=== PATIENT | male | born 1945 | race Caucasian/White ===

== ENCOUNTER 2021-02-22 02:45 | Observation (INO) | payer MEDICARE ==
[~2021-02-22] VITALS: Ht 193 cm; Wt 107.7 kg
[2021-02-22 02:44] VITALS: BP 182/104
[~2021-02-22 02:45] MED LIST: EZFE 200200 MG PO; FOLIC ACID1 MG PO; MINOCIN100 MG PO; NORVASC5 MG PO; VITAMIN B-121000 MC3 PO
[2021-02-22] MEDS ORDERED: LISINOPRIL10 MG PO (02:47)
[2021-02-22] MEDS ORDERED: LIPITOR10 MG PO (02:47)
[2021-02-22] MEDS ORDERED: GLUCOPHAGE500 MG PO (02:47)
--- NOTE | 2021-02-22 02:54 | NUR ---
ARRIVED VIA EMS A OX3. NO DISTRESS NOTE. 18G IV TO L WRIST
[2021-02-22 03:01] VITALS: BP 155/91
--- NOTE | 2021-02-22 04:15 | NUR ---
PT FROM ER VIA W/C, RESP EVEN AND UNLABORED, NO DISTRESS NOTED, CL IN REACH, SR UP X 2.
--- NOTE | 2021-02-22 04:40 | NUR ---
PT BLOOD SUGAR 128 AT THIS TIME.
[2021-02-22 04:57] VITALS: BP 157/86; BMI 28.9
[2021-02-22 07:00] LABS: BASOPHILS 0.8 % (0-2); EOSINOPHILS 4.2 % (0-7); HEMATOCRIT 39.6 % (42.0-54.0); HEMOGLOBIN 13.3 g/dL (13.5-17.5); LYMPHOCYTES 30.6 % (15-50); MCH 28.5 pg (26.0-34.0); MCHC 33.6 g/dL (31.0-37.0); MCV 84.8 fL (80.0-100.0); MEAN PLATELET VOLUME 8.5 fL (7.4-10.4); MONOCYTES 11.7 % (2-11); NEUTROPHILS 52.7 % (40-80); PLATELET COUNT 206 10x3/uL (130-400); RBC 4.67 10x6/uL (4.20-6.10); RDW 13.9 % (11.5-14.5); WBC 5.6 10x3/uL (4.8-10.8)
--- NOTE | 2021-02-22 07:10 | NUR ---
Lying in bed, awake/alert/oriented, T/R self ad hoawrd, cont of B/B with BRPs per self ad howard, denies pain/other discomfort at this time, call light/phone/water within reach, no s/s of acute distress observed.
[2021-02-22 07:13] LABS: ANION GAP 11.2 mmol/L (8-16); CALCIUM 8.6 mg/dL (8.5-10.1); CARBON DIOXIDE 29.3 mmol/L (21.0-32.0); CREATININE - SERUM 1.2 mg/dL (0.6-1.3); POTASSIUM - SERUM 3.5 mmol/L (3.5-5.1)
[2021-02-22 08:06] VITALS: BP 121/70
[2021-02-22 09:22] VITALS: Ht 193 cm; Wt 107.7 kg
[2021-02-22 11:25] VITALS: BP 145/90
[2021-02-22 13:28] LABS: HEMATOCRIT 39.2 % (42.0-54.0); HEMOGLOBIN 13.2 g/dL (13.5-17.5)
--- NOTE | 2021-02-22 13:30 | NUR ---
Pt and spouse want to speak with APPAREL FASHION DESIGNER or physician about what the plan is.
--- NOTE | 2021-02-22 13:57 | NUR ---
Paged TAIWO Mcgraw.
--- NOTE | 2021-02-22 14:00 | NUR ---
Updated PRINTING GRAY CLOTH TENDER Mariluz with pt concerns/wishes, waiting for orders.
--- NOTE | 2021-02-22 16:00 | NUR ---
Provided discharge instructions/education to which pt/spouse expressed understanding, discontinued IV access.
--- NOTE | 2021-02-22 16:18 | NUR ---
DC'd home to self care in stable condition via w/c accompanied by hospital staff and family member, no s/s of acute distress observed.
== END 2021-02-22 16:18 | disposition home or self-care (01) ==
LOC: D.ER 02:45 → D.M2 03:58 → OBSVTIME 03:58 → D.M2 16:18
PROVIDERS: Emergency Medicine; Family Medicine; ADMIT Family Medicine; ATTEND Family Medicine
DX: K92.1 Melena (principal); E11.65 Type 2 diabetes mellitus with hyperglycemia; I10 Essential (primary) hypertension; Z79.84 Long term (current) use of oral hypoglycemic drugs; E78.5 Hyperlipidemia, unspecified

== ENCOUNTER 2021-02-24 03:17 | Observation (INO) | payer MEDICARE, OTHER ==
[~2021-02-24] VITALS: Ht 193 cm; Wt 108.0 kg
[~2021-02-24 03:17] MED LIST changes: +GLUCOPHAGE500 MG PO; +LIPITOR10 MG PO; +LISINOPRIL10 MG PO
[2021-02-24 03:49] LABS: BASOPHILS 0.7 % (0-2); EOSINOPHILS 3.7 % (0-7); HEMATOCRIT 35.8 % (42.0-54.0); MCH 28.7 pg (26.0-34.0); MCHC 33.5 g/dL (31.0-37.0); MCV 85.5 fL (80.0-100.0); MEAN PLATELET VOLUME 7.9 fL (7.4-10.4); MONOCYTES 8.6 % (2-11); PLATELET COUNT 205 10x3/uL (130-400); RBC 4.19 10x6/uL (4.20-6.10); RDW 13.7 % (11.5-14.5); WBC 6.7 10x3/uL (4.8-10.8)
[2021-02-24 03:56] LABS: INR 1.25 (0.85-1.17); PROTIME 14.5 SECONDS (11.6-15.0)
[2021-02-24 03:57] LABS: ANION GAP 10.8 mmol/L (8-16); CARBON DIOXIDE 30.3 mmol/L (21.0-32.0); CREATININE - SERUM 1.3 mg/dL (0.6-1.3)
--- NOTE | 2021-02-24 04:02 | NUR ---
FAMILY MEMBER STATES PT HAS SOILED HIMSELF AND REQUEST WE CLEAN HIM. NOTED LARGE AMOUNT OF LIQUID DARK RED FECES IN PT'S SHORTS AND SPILLED OUT ONTO BED/SHEETS. DR. VICTORIA NOTIFIED.
[2021-02-24 04:03] LABS: ALBUMIN 3.1 g/dL (3.4-5.0); BILIRUBIN - TOTAL 0.57 mg/dL (0.2-1.3); POTASSIUM - SERUM 4.1 mmol/L (3.5-5.1); PROTEIN - SERUM 5.9 g/dL (6.4-8.2)
--- NOTE | 2021-02-24 07:08 | NUR ---
RECEIVED BEDSIDE REPORT FROM CECI HUGGINS
[2021-02-24 07:18] VITALS: BP 124/82
[2021-02-24 09:54] LABS: BASOPHILS 0.5 % (0-2); EOSINOPHILS 3.5 % (0-7); HEMATOCRIT 34.5 % (42.0-54.0); HEMOGLOBIN 11.7 g/dL (13.5-17.5); LYMPHOCYTES 23.3 % (15-50); MCHC 33.9 g/dL (31.0-37.0); MCV 85.6 fL (80.0-100.0); MEAN PLATELET VOLUME 7.8 fL (7.4-10.4); NEUTROPHILS 63.7 % (40-80); PLATELET COUNT 215 10x3/uL (130-400); RBC 4.03 10x6/uL (4.20-6.10); RDW 13.6 % (11.5-14.5); WBC 5.7 10x3/uL (4.8-10.8)
[2021-02-24 11:37] VITALS: BP 142/88
--- NOTE | 2021-02-24 12:10 | NUR ---
RECEIVED PATIENT TO ROOM 2105 VIA STRETCHER. PATIENT IS AAOX4, UP AD JULES. NO S/S OF DISTRESS OBSERVED, RR EVEN AND UNLABORED ON ROOM AIR. PIV TO LT FA, INFUSING PROTONIX AND NS. PATIENT DENIES NEEDS AT THIS TIME. CL IN REACH, BED LOCKED AND LOWERED. WILL CPOC.
[2021-02-24 12:28] VITALS: BP 142/82
[2021-02-24 15:00] VITALS: BP 129/77
[2021-02-24 19:45] VITALS: BP 150/85
--- NOTE | 2021-02-24 21:03 | NUR ---
RADIOLOGY/JANI SPOKE WITH DR HANKINS AND GOT HIS PERMISSION TO DO THE GI BLEED SCAN TONIGHT INSTEAD OF IN THE MORNING.
[2021-02-25 00:27] VITALS: BP 144/84
--- NOTE | 2021-02-25 01:20 | NUR ---
UP TO BATHROOM TO HAVE BM. BACK TO BED. DENIES PAIN. IVF INFUSING. IV PROTONIX DRIP INFUSING.
[2021-02-25 04:16] VITALS: BP 145/87
--- NOTE | 2021-02-25 06:33 | NUR ---
PT HAS RESTED WELL. UP TO BATHROOM INDEPENDENT. GI BLEED TIME WAS PERFORMED LAST NIGHT , SO PT NO LONGER NEEDS TO BE NPO THIS AM. BED LOW AND LOCKED. CALL LIGHT IN REACH. REPORT TO ONCOMING NURSE.
[2021-02-25 06:56] LABS: BASOPHILS 0.4 % (0-2); EOSINOPHILS 4.1 % (0-7); HEMATOCRIT 31.4 % (42.0-54.0); HEMOGLOBIN 10.9 g/dL (13.5-17.5); LYMPHOCYTES 25.2 % (15-50); MCH 29.4 pg (26.0-34.0); MCHC 34.7 g/dL (31.0-37.0); MCV 84.5 fL (80.0-100.0); MEAN PLATELET VOLUME 8.5 fL (7.4-10.4); MONOCYTES 8.6 % (2-11); NEUTROPHILS 61.7 % (40-80); PLATELET COUNT 190 10x3/uL (130-400); RBC 3.71 10x6/uL (4.20-6.10); RDW 13.4 % (11.5-14.5)
[2021-02-25 07:37] LABS: CARBON DIOXIDE 25.8 mmol/L (21.0-32.0); CREATININE - SERUM 1.1 mg/dL (0.6-1.3); POTASSIUM - SERUM 3.8 mmol/L (3.5-5.1)
[2021-02-25 08:02] VITALS: BP 134/72
--- NOTE | 2021-02-25 10:07 | NUR ---
PATIENT AAOX4 RESP EVEN AND NON LABORED, NO S/S OF DISTRESS, MEDICATIONS ADMINISTERED WITH NO COMPLICATIONS, PATIENT PROVIDED THINGS FOR A SHOWER, NO FURTHER NEEDS, CLIR, BLP
--- NOTE | 2021-02-25 10:34 | NUR ---
I have reviewed this patient and I concur with the Shift Assessment completed by the Licensed Practical Nurse today this shift.
[2021-02-25 10:50] VITALS: Ht 193 cm; Wt 108.0 kg
--- NOTE | 2021-02-25 14:14 | NUR ---
PATIENT IV REMOVED AND PATIENT TOOK TO ED BY WHEELCHAIR, PICKED UP PATIENT FROM ED ENTRANCE
== END 2021-02-25 14:15 | disposition home or self-care (01) ==
LOC: D.ER 03:17 → OBSVTIME 04:17 → D.M2 04:17 → D.EDHOLD 04:17 → D.M2 11:27
PROVIDERS: Family Medicine; ADMIT Family Medicine; ATTEND Family Medicine
DX: K57.33 Diverticulitis of large intestine without perforation or abscess with bleeding (principal); D64.9 Anemia, unspecified; E11.9 Type 2 diabetes mellitus without complications; E78.5 Hyperlipidemia, unspecified; I10 Essential (primary) hypertension; Z79.84 Long term (current) use of oral hypoglycemic drugs; G47.33 Obstructive sleep apnea (adult) (pediatric); L71.9 Rosacea, unspecified; Z85.038 Personal history of other malignant neoplasm of large intestine